=== PATIENT | female | born 1970 | race Caucasian/White ===

== ENCOUNTER → 2019-06-04 09:50 | Outpatient (BNVA) | payer BC, SELFPAY | PROVIDERS: Visit Provider Nurse Practitioner Family | DX: R53.83 Other fatigue (principal); Z13.6 Encounter for screening for cardiovascular disorders; E55.9 Vitamin D deficiency, unspecified; Z79.899 Other long term (current) drug therapy; M79.672 Pain in left foot; Z12.11 Encounter for screening for malignant neoplasm of colon; Z12.31 Encounter for screening mammogram for malignant neoplasm of breast; M77.32 Calcaneal spur, left foot | CPT/HCPCS: 36415; 73630; 80053; 80061; 81001; 82306; 83036; 84443; 85025; 85651; 86140 ==

== ENCOUNTER 2019-07-09 12:55 | Outpatient (CLI) | payer BC, SELFPAY ==
--- NOTE | 2019-07-09 13:00 | MM_ITS ---
WS: [id number] Bilateral screening digital mammogram, 07/09/2019 Clinical Data: breast cancer screening Comparison: 02/20/2015, 02/18/2014, 12/18/2012, 10/11/2008. Findings: The breast parenchymal pattern shows fibroglandular tissue No spiculated masses or clustered calcific ations are seen. There are no secondary signs of carcinoma. MM/[place] [id number] Impression: 1. Negative bilateral mammogram unchanged. 2. Recommend annual screening mammograms. BIRADS: 1-Negative FOLLOW UP: 1 Year Follow-up The CAD controlled area checker was used.
== END 2019-07-09 12:56 | disposition home or self-care (01) ==
LOC: RADSHAW 12:56
PROVIDERS: PCP Nurse Practitioner Family; Visit Provider Nurse Practitioner Family
DX: B35.1 Tinea unguium (principal); Z12.31 Encounter for screening mammogram for malignant neoplasm of breast
CPT/HCPCS: 77067; 87210

== ENCOUNTER 2019-08-27 10:42 | Day surgery (SDC) | payer BC, SELFPAY ==
[2019-08-24 14:51] VITALS: BMI 42.5
[2019-08-27 10:59] VITALS: BP 138/89; PULSE 74; RESP 20; TEMP 36.1; O2SAT 98
[2019-08-27] MEDS: sodium chloride 0.9% 1,000 ML 30 ML IV (11:12)
--- NOTE | 2019-08-27 11:17 | ANES.PREANE2 ---
Pre-Anesthetic Assessment Pre-Anesthetic Assessment: Height/Weight: Height 1.6 m Weight 108.862 kg Temp Pulse Resp BP Pulse Ox 97 F L 74 20 H 138/89 98 08/27/19 10:59 08/27/19 10:59 08/27/19 10:59 08/27/19 10:59 08/27/19 10:59 Preop Diagnosis: screening Proposed Procedure: Operation Date: 08/27/19 12:10 Proposed Procedures p Colonoscopy G0121 Z12.11(Not Applicable) - Rodrick Molina MD Familial anesthetic complications: None Was Beta Hannah taken within 24 hours: N/A Last intake: Intake Last Liquid Date 08/26/19 Last Liquid Time 22:00 Last Solid Date 08/25/19 Last Solid Time 23:59 Social: Social History: No alcohol and No tobacco Exam: Pre-Anes Outpt Exam: alert, oriented x 3, clear to auscultation bilaterally and regular rate & rhythm Airway: Cervical ROM: WNL MP: 1 Additional comments: missing Pulmonary: Pulmonary: None reported CV/HEM: CV/HEM: None reported : : None reported Hepatic: Hepatic: None reported GI: GI: GERD Metabolic: Metabolic: Morbid obesity Musc/skel: Musc/skel: None reported Neuropsych: Neuropsych: None reported Anesthetic Plan: ASA status: 1 Anesthesia: MAC Risk of > 500 ml blood loss (7ml/kg in children): No Meds/Allergies Current Medications: Current Medications Generic Name Dose Route Start Last Admin Trade Name Freq PRN Reason Stop Dose Admin Sodium Chloride 1,000 mls @ 30 ml s/hr 08/27/19 11:00 08/27/19 11:12 Sodium Chloride 0.9% IV 08/28/19 10:59 30 mls/hr .Q24H B[facility]TON Administration PFSH Anesthesia PFSH: Social History Smoking and tobacco status: never smoked Second hand smoke exposure: No Smoking risk assessment/counseling performed?: No Alcohol intake: never Desire information about alcohol rehabilitation?: No Counseling given: No Desire information about substance/drug rehabilitation?: No Counseling given: No History of recent travel: No Data Anesthesia Cardiac Studies: No Data to Display
[2019-08-27 12:40] VITALS: BP 123/68; PULSE 75; RESP 16; TEMP 36.1; O2SAT 95
--- NOTE | 2019-08-27 12:45 | ANE.PACU2 ---
 Inpatient post-anesthesia follow up: Airway intact: Yes Vital signs: Temperature 97 F Pulse Rate 75 Respiratory Rate 16 Blood Pressure 123/68 Pulse Oximetry 95 Oxygen Delivery Me thod Nasal Cannula Oxygen Flow Rate 2 Fraction of Inspir ed Oxygen Hydration adequate: Yes Nausea and vomiting: No Pain level: 1 Mental status: Baseline
[2019-08-27 13:00] VITALS: BP 112/74; PULSE 73; RESP 20; O2SAT 98
== END 2019-08-27 13:09 | disposition home or self-care (01) ==
PROVIDERS: PCP Nurse Practitioner Family; Visit Provider Internal Medicine
PROC: 0DJD8ZZ Inspection of Lower Intestinal Tract, Via Natural or Artificial Opening Endoscopic (ICD-10-PCS; CPT 45378; principal; 2019-08-27 12:05)
DX: Z12.11 Encounter for screening for malignant neoplasm of colon (principal); K21.9 Gastro-esophageal reflux disease without esophagitis; E66.01 Morbid (severe) obesity due to excess calories; Z68.41 Body mass index [BMI] 40.0-44.9, adult
CPT/HCPCS: 45378; J2704; J7030

== ENCOUNTER → 2020-07-25 11:29 | Outpatient (BNVA) | payer BC, SELFPAY | PROVIDERS: PCP Nurse Practitioner Family; Visit Provider Nurse Practitioner Family | DX: Z12.31 Encounter for screening mammogram for malignant neoplasm of breast (principal); R53.82 Chronic fatigue, unspecified; Z13.6 Encounter for screening for cardiovascular disorders; E55.9 Vitamin D deficiency, unspecified; Z79.899 Other long term (current) drug therapy; R70.0 Elevated erythrocyte sedimentation rate; E66.01 Morbid (severe) obesity due to excess calories; Z68.41 Body mass index [BMI] 40.0-44.9, adult | CPT/HCPCS: 80053; 80061; 81003; 82306; 83036; 84439; 84443; 85025; 85651; 86038; 86140 ==

== ENCOUNTER 2020-09-08 14:45 | Outpatient (CLI) | payer BC, SELFPAY ==
--- NOTE | 2020-09-08 15:00 | MM_ITS ---
WS: [id number] BILATERAL DIGITAL SCREENING MAMMOGRAPHY WITH CAD CLINICAL INFORMATION: Z12.31 - Encounter for screening mammogram for malignant neoplasm of breast HISTORY: Screening mammogram. No current complaints. COMPARISON: July 09, 2019 TECHNIQUE: Bilateral CC and MLO views. FINDINGS: Scattered fibroglandular densities bilaterally. Vascular calcification. No suspicious focal mass, asy mmetry, calcifications, or architectural distortion. No evidence of malignancy. MM/[place] [id number] IMPRESSION: BI-RADS: 2-Benign FOLLOW UP: 1 Year Follow-up Recommend return to annual screening mammography.
== END 2020-09-08 14:46 | disposition home or self-care (01) ==
LOC: RADSHAW 14:48
PROVIDERS: PCP Nurse Practitioner Family; Visit Provider Nurse Practitioner Family
DX: Z12.31 Encounter for screening mammogram for malignant neoplasm of breast (principal)
CPT/HCPCS: 77067

== ENCOUNTER → 2020-09-23 10:01 | Outpatient (BNVA) | payer BC, SELFPAY | PROVIDERS: PCP Nurse Practitioner Family; Visit Provider Internal Medicine | DX: R70.0 Elevated erythrocyte sedimentation rate (principal); M25.50 Pain in unspecified joint; E55.9 Vitamin D deficiency, unspecified; R53.82 Chronic fatigue, unspecified; Z11.59 Encounter for screening for other viral diseases | CPT/HCPCS: 99204 ==

== ENCOUNTER 2020-09-23 15:18 | Outpatient (CLI) | payer BC, SELFPAY ==
--- NOTE | 2020-09-23 15:47 | XRR_ITS ---
PROCEDURE INFORMATION: Exam: XR Left Hand Exam date and time: 09/23/2020 3:59 PM Age: 50 years old Clinical indication: Abnormal findings; Abnormal lab test; Other: Elevated erythrocyte sedimentation rate; Additional info: R70.0 - elevated erythrocyte sedimentation rate TECHNIQUE: Imaging protocol: XR Left hand. Views: 3 or more views. COMPARISON: No relevant prior studies available. FINDINGS: Bones/joints: Normal. Soft tissues: Normal. XR/XR hand LT 2V [id number] IMPRESSION: 1. No acute findings. 2. No changes of inflammatory arthritis identified.
--- NOTE | 2020-09-23 15:47 | XRR_ITS ---
PROCEDURE INFORMATION: Exam: XR Left Foot Exam date and time: 09/23/2020 3:59 PM Age: 50 years old Clinical indication: Pain; Foot; Left; Additional info: M25.50 - pain in unspecified joint TECHNIQUE: Imaging protocol: XR Left foot. Views: 1 or 2 views. COMPARISON: CR XR foot LT min 3V* [id number] 06/04/2019 10:03 AM FINDINGS: Bones/joints: Normal. Soft tissues: Normal. XR/XR foot LT 2V [id number] IMPRESSION: 1. No acute findings. 2. No changes of inflammatory arthritis identified.
--- NOTE | 2020-09-23 15:47 | XRR_ITS ---
PROCEDURE INFORMATION: Exam: XR Right Hand Exam date and time: 09/23/2020 3:59 PM Age: 50 years old Clinical indication: Abnormal findings; Abnormal lab test; Other: Elevated erythrocyte sedimentation rate; Additional info: R70.0 - elevated erythrocyte sedimentation rate TECHNIQUE: Imaging protocol: XR Right hand. Views: 1 or 2 views. COMPARISON: No relevant prior studies available. FINDINGS: Bones/joints: Normal. Soft tissues: Normal. XR/XR hand RT 2V [id number] IMPRESSION: 1. No acute findings. 2. No changes of inflammatory arthritis identified.
--- NOTE | 2020-09-23 15:47 | XRR_ITS ---
PROCEDURE INFORMATION: Exam: XR Right Foot Exam date and time: 09/23/2020 3:59 PM Age: 50 years old Clinical indication: Abnormal findings; Abnormal lab test; Other: Elevated erythrocyte sedimentation rate; Additional info: M25.50 - pain in unspecified joint TECHNIQUE: Imaging protocol: XR Right foot. Views: 1 or 2 views. COMPARISON: No relevant prior studies available. FINDINGS: Bones/joints: Normal. Soft tissues: Normal. XR/XR foot RT 2V [id number] IMPRESSION: 1. No acute findings. 2. No changes of inflammatory arthritis identified.
--- NOTE | 2020-09-23 15:47 | XRR_ITS ---
PROCEDURE INFORMATION: Exam: XR Cervical Spine Exam date and time: 09/23/2020 3:59 PM Age: 50 years old Clinical indication: Abnormal findings; Abnormal lab test; Other: Elevated erythrocyte sedimentation rate; Additional info: R70.0 - elevated erythrocyte sedimentation rate TECHNIQUE: Imaging protocol: XR of the cervical spine. Views: 2 or 3 views. COMPARISON: CR Cervical Spine 5 views [id number] 12/11/2015 1:38 PM FINDINGS: Bones/joints: No fractures. Unremarkable alignment. Moderate severity disc height loss at lower levels. No vertebral subluxation. Mild arthropathy changes of facets. Soft tissues: Unremarkable. XR/XR cervical spine fl/ex [id number] IMPRESSION: 1. No acute findings. 2. Degenerative changes are stable from prior.
[2020-09-23 16:52] LABS: Basophils % 0.5 %; Eosinophils # 0.1 10^3/uL (0.0-0.8); Eosinophils % 1.6 %; Hematocrit 42.2 % (37.0-47.0); Hemoglobin 13.6 g/dL (11.5-15.3); Lymphocytes # 2.9 10^3/uL (0.8-4.8); Lymphocytes % 36.2 %; Mean Corpuscular HGB Conc 32.2 g/dL (30.0-36.0); Mean Corpuscular Volume 83.7 fL (81-99); Mean Platelet Volume 10.1 fL (7.4-10.4); Monocytes # 0.6 10^3/uL (0.2-0.9); Monocytes % 7.2 %; Neutrophils # 4.29 10^3/uL (1.8-7.7); Neutrophils % 54.1 %; Nucleated Red Blood Cells % 0 %; Platelet Count 356 10^3/cmm (130-400); Red Blood Count 5.04 10^6/uL (4.1-5.3); Red Cell Distribution Width 13.9 % (12.1-15.1); White Blood Count 7.9 10^3/uL (4.0-10.0)
[2020-09-23 17:24] LABS: Alanine Aminotransferase 16 U/L (0-33); Albumin Level 3.9 g/dL (3.5-5.2); Alkaline Phosphatase 68 IU/L (35-105); Anion Gap 14.6 (5-19); Aspartate Amino Transferase 17 U/L (0-32); Blood Urea Nitrogen 12 mg/dL (6-20); C Reactive Protein 15.9 mg/L (0.0-4.9); Calcium 8.9 mg/dL (8.5-10.5); Carbon Dioxide 26 mmol/L (22-29); Chloride 100 mmol/L (98-107); Creatine Phosphokinase 64 U/L (26-192); Ferritin 263 ng/mL (15-150); Globulin 3.2 g/dL (1.3-4.6); Glomerular Filtration Rate 129.6 mL/min (90-130); Glucose 84 mg/dL (65-115); Iron 43 ug/dL (37-145); Osmolality Calculated 281 mOsm/kg (285-295); Potassium 4.6 mmol/L (3.5-5.1); Sodium 136 mmol/L (136-145); Total Bilirubin 0.2 mg/dL (0.15-1.2); Total Protein 7.1 g/dL (6.6-8.7)
[2020-09-23 19:02] LABS: Erythrocyte Sedimentation Rate 37 mm/hr (0-15)
[2020-09-23 19:21] LABS: Complement C3 165 mg/dL (90-180)
[2020-09-23 19:38] LABS: Cortisol Random 8.97 ug/dL (2.47-19.5); Hepatitis B Core AB, Total Non-Reactive (Nonreactive); Hepatitis B Surface Antigen Non-Reactive (Nonreactive); Hepatitis C Virus Antibody Non-Reactive (Nonreactive)
[2020-09-25 12:37] LABS: Lymes IGG WB <0.90 index
[2020-09-27 23:22] LABS: Tissue Transglutaminase IgA Ab <1 U/mL; Tissue transglutaminase Ab.IgG 1 U/mL
[2020-09-29 00:07] LABS: Immunoglobulin A 190 mg/dL (47-310)
[2020-10-02 15:43] LABS: Gliadin Ab.IgA 4 U (<20); Gliadin Ab.IgG <1 U (<20)
== END 2020-09-23 15:19 | disposition home or self-care (01) ==
PROVIDERS: PCP Nurse Practitioner Family; Visit Provider Internal Medicine
DX: M25.50 Pain in unspecified joint (principal); R70.0 Elevated erythrocyte sedimentation rate; D86.9 Sarcoidosis, unspecified; Z11.59 Encounter for screening for other viral diseases
CPT/HCPCS: 36415; 72040; 73120; 73620; 80053; 81003; 82533; 82550; 82728; 82784; 83516; 83540; 85025; 85651; 86140; 86160; 86617; 86704; 86803; 87340

== ENCOUNTER 2020-11-26 12:20 | Outpatient (CLI) | payer BC, SELFPAY ==
--- NOTE | 2020-11-26 12:33 | XR_ITS ---
WS: [id number] SI JOINTS TECHNIQUE: 3 views of the sacroiliac joints CLINICAL INFORMATION: L40.9 - Psoriasis, unspecified COMPARISON: None. 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 No periarticular erosi ons. Sacrum is otherwise normal in appearance. Normal pubic rami. 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 No periarticular erosions.
== END 2020-11-26 12:21 | disposition home or self-care (01) ==
PROVIDERS: PCP Nurse Practitioner Family; Visit Provider Internal Medicine
DX: L40.9 Psoriasis, unspecified (principal); R70.0 Elevated erythrocyte sedimentation rate; R76.8 Other specified abnormal immunological findings in serum; M25.50 Pain in unspecified joint
CPT/HCPCS: 72202; 99213

== ENCOUNTER 2025-03-27 11:24 | Outpatient (CLI) | payer SELFPAY ==
--- NOTE | 2025-03-27 11:40 | MM_ITS ---
WS: [id number] BILATERAL 3D TOMOSYNTHESIS DIGITAL SCREENING MAMMOGRAPHY WITH CAD CLINICAL INFORMATION: Z12.39 - Encounter for other screening for malignant neop... HISTORY: Screening mammogram. No current complaints. COMPARISON: 2020 TECHNIQUE: Bilateral CC and MLO views. FINDINGS: Scattered fibroglandular densities bilaterally. No suspicious focal mass, asymmetry, calcifications, or architectural distortion. No evidence of malignancy. Vascular calcification. MM/MM scr tomosynthesis [id number] IMPRESSION: DENSITY: There are scattered areas of fibroglandular density. BI-RADS: 2 - Benign. FOLLOW UP: 1 Year Follow-up Recommend return to annual screening mammography.
== END 2025-03-27 11:25 | disposition home or self-care (01) ==
LOC: MOBLMAM 11:28
PROVIDERS: PCP Nurse Practitioner Family; Visit Provider Nurse Practitioner Family
DX: Z12.39 Encounter for other screening for malignant neoplasm of breast (principal); Z12.31 Encounter for screening mammogram for malignant neoplasm of breast; R92.323 Mammographic fibroglandular density, bilateral breasts; R92.1 Mammographic calcification found on diagnostic imaging of breast
CPT/HCPCS: 77063; 77067